=== PATIENT | female | born 1985 | race Caucasian/White ===

== ENCOUNTER → 2017-05-30 | Outpatient (CLI) | payer OTHER ==
[~2017-05-30] MED LIST: FUROSEMIDE INJ 10 MG/ML 2 ML VIAL IV ONE
[2017-05-30 12:42] LABS: BLOOD UREA NITROGEN 9 mg/dl (7-18); BUN/CREATININE RATIO 9.9 (10-20); CALCIUM 8.8 mg/dl (8.5-10.1); CARBON DIOXIDE 27 mmol/L (21-32); CHLORIDE 106 mmol/L (98-107); CREATININE 0.86 mg/dl (0.60-1.20); GLUCOSE 82 mg/dl (70-99); POTASSIUM 3.7 mmol/L (3.5-5.1); SODIUM 137 mmol/L (136-145)
--- NOTE | 2017-05-30 14:00 | DIAGNOSTIC IMAGING REPORT ---
RENAL SCAN DIURETIC (MAG 3) HISTORY: 31 years-old Female N13.30 [id number] hydronephrosis of the right kidney with back pain. COMPARISON: None available TECHNIQUE: Renal scan was obtained with 8.8 mCi technetium 99 MAG3. Lasix was also administered. FINDINGS: There is normal flow and excretion of the left kidney. The left renal collecting system and left renal pelvis appears somewhat patulous. There is asymmetrically decreased flow and excretion of the right kidney. Split function is 88.7% on the left and 11.3% on the right. There is delayed excretion of contrast from the right kidney. Excretion is difficult to quantify secondary to lack of significant tracer within the right kidney and collecting system. No significant tracer retention. IMPRESSION: Significantly decreased flow and excretion of the right kidney. Split function of 88.7% on the left and 11.3% on the right. The above report was generated using voice recognition software. It may contain grammatical, syntax or spelling errors. Electronically signed by: Ruben Barros M.D. 05/30/2017 1:59 PM Dictated Date/Time: 05/30/2017 12:52 PM
== END | disposition home or self-care (01) ==
LOC: C.NUCL 09:51
PROVIDERS: ATTEND Urology
DX: N13.30 Unspecified hydronephrosis (principal)

== ENCOUNTER → 2017-08-01 | Outpatient (CLI) | payer OTHER ==
[~2017-08-01] MED LIST changes: +ACET-749 PO; +CIPR-255 PO; +GLV/100 PO; +IBUP-1449 PO; +MULT-506 PO
--- NOTE | 2017-08-01 13:56 | DIAGNOSTIC IMAGING REPORT ---
RENAL SCAN DIURETIC (MAG 3) CLINICAL HISTORY: N13.30 Hydronephrosis obstructive change. TECHNIQUE: This study was obtained following administration of 9.1 mCi technetium 99m MAG3. 20 mg Lasix was administered. COMPARISON STUDY: 05/30/2017 FINDINGS: Study is similar compared to the prior exam. There is considerable asymmetry in total renal function. Uptake and washout characteristics of the left kidney are unremarkable. Total function of the left kidney is 92% compared to a prior 88.7%. The right kidney shows minimal function at approximately 8%. This is slightly diminished from the prior study of 11.3%. There continues to be a decrease in excretion rate of the right kidney compared to the left. IMPRESSION: 1. Significantly decreased flow in function of the right kidney with current function estimated at 8 % of the total. 2. Left kidney functions appropriately with a total function estimated at 92% of the total. 3. Maximum right renal function is slightly diminished compared to the prior study. The above report was generated using voice recognition software. It may contain grammatical, syntax or spelling errors. Electronically signed by: Miguel Lowe M.D. 08/01/2017 1:55 PM Dictated Date/Time: 08/01/2017 1:39 PM
== END | disposition home or self-care (01) ==
LOC: C.NUCL 11:13
PROVIDERS: ATTEND Urology
DX: N13.30 Unspecified hydronephrosis (principal)

== ENCOUNTER → 2017-08-14 | Outpatient (CLI) | payer OTHER ==
[~2017-08-14] MED LIST changes: -ACET-749 PO; -CIPR-255 PO; -FUROSEMIDE INJ 10 MG/ML 2 ML VIAL IV ONE
[2017-08-14 12:23] LABS: BASO % 1.8 %; BASO ABS # 0.07 K/uL (0-0.2); EOS % 11.4 %; EOS ABS # 0.44 K/uL (0-0.5); HEMATOCRIT 33.4 % (37-47); HEMOGLOBIN 11.5 g/dL (12.0-16.0); LYMPH % 36.1 %; LYMPH ABS # 1.39 K/uL (1.2-3.4); MEAN CELL VOLUME 91.5 fL (80-100); MEAN CORPUSCULAR HEMOGLOBIN 31.5 pg (25-34); MEAN CORPUSCULAR HGB CONC 34.4 g/dl (32-36); MEAN PLATELET VOLUME 10.6 fL (7.4-10.4); MONO % 9.9 %; MONO ABS # 0.38 K/uL (0.11-0.59); NEUT % 40.8 %; NEUT ABS # 1.57 K/uL (1.4-6.5); PLATELET COUNT 162 K/uL (130-400); RED CELL DISTRIBUTION WIDTH CV 12.8 % (11.5-14.5); RED CELL DISTRIBUTION WIDTH SD 43.3 fL (36.4-46.3); WHITE BLOOD COUNT 3.85 K/uL (4.8-10.8)
[2017-08-14 12:44] LABS: BLOOD UREA NITROGEN 11 mg/dl (7-18); CALCIUM 8.8 mg/dl (8.5-10.1); CARBON DIOXIDE 25 mmol/L (21-32); CREATININE 0.85 mg/dl (0.60-1.20); GLUCOSE 77 mg/dl (70-99); POTASSIUM 3.7 mmol/L (3.5-5.1); SODIUM 138 mmol/L (136-145)
== END | disposition home or self-care (01) ==
LOC: C.LABPBG 10:30
PROVIDERS: ATTEND Urology
DX: N13.30 Unspecified hydronephrosis (principal)

== ENCOUNTER → 2017-08-22 | Outpatient (CLI) | payer OTHER ==
[~2017-08-22] MED LIST changes: +GADAVIST IV PRN
--- NOTE | 2017-08-22 11:11 | DIAGNOSTIC IMAGING REPORT ---
PELVIC COMBO, ABDOMEN COMBO CLINICAL HISTORY: 31 years-old Female presenting with HX DESMOID TUMOR RECURRENCE, REMOVED TWICE. TECHNIQUE: Multisequence, multiplanar MR imaging of the abdomen and pelvis was performed before and after the administration of intravenous contrast. IV contrast: 5 mL of Gadavist. COMPARISON: MR of the abdomen from 02/14/2017 performed at an outside hospital. FINDINGS: Localizer images: Unremarkable. Lung bases: Lung bases clear. Normal heart size. No pericardial or pleural effusion. Liver: Normal morphology. No liver lesion. Patent hepatic vasculature. Biliary: No intrahepatic or extrahepatic biliary ductal dilatation. Normal gallbladder. Pancreas: Normal. Spleen: Normal. Adrenal glands: Normal. Kidneys and ureters: Decreased dilatation of the right renal collecting system and resultant atrophy of the right kidney, likely sequela of chronic hydronephrosis as demonstrated on the prior exam. Bladder: Normal. Pelvic organs: Uterus normal though displaced towards the left pelvis. The right ovary is also displaced and contains a 3.5 cm cyst (series 9 image 14). Bowel: Normal. No bowel obstruction. Peritoneal cavity: No free fluid or intraperitoneal gas. Lymph nodes: No enlarged lymph nodes in the abdomen or pelvis. Vasculature: Aorta and IVC patent and normal in caliber. Abdominal wall: Normal. Musculoskeletal: The extraperitoneal mass in the region of the right iliacus and right obturator muscles now measures 8.8 x 6.2 cm in maximal axial dimension, previously 8.1 x 5.9 cm. This again expands the musculature and exerts mass effect on the intrapelvic contents. This extends minimally through the sciatic notch. This also extends along the inferior margin of the right superior pubic ramus. A portion of the mass may also track along the right femoral vasculature. The mass demonstrates avid enhancement on postcontrast imaging along the periphery periphery and in the lobular components along the sciatic notch and pubic ramus. However, the central and superficial components of the dominant portion of the mass are largely hypovascular, suggesting a post treatment response. T2 hyperintensity of the right external and internal obturator muscle may relate to infiltration by the mass or degeneration. IMPRESSION: 1. 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 The multilobulated mass in the lesser components, specifically along the sciatic notch and right superior pubic ramus, do not demonstrate the vascularization. 2. Interval development of chronic atrophy of the right kidney likely secondary to chronic hydronephrosis. 3. Interval development of a 3.5 cm right ovarian cyst. This is also a benign, however, follow-up ultrasound in 6-12 weeks could be considered to ensure resolution. Electronically signed by: Jaiden Barraza M.D. 08/22/2017 11:10 AM Dictated Date/Time: 08/22/2017 10:52 AM
--- NOTE | 2017-08-28 06:03 | CODING QUERY NO DIAGNOSIS ---
TREATMENT RENDERED WITHOUT A DIAGNOSIS Dr. Brock, To promote full compliance with coding requirements relating to patient care, physician participation is requested in all cases of sand car worker uncertainty. Please assist us with providing a diagnosis/symptom for the test(s) below: A diagnosis/symptom was not documented on your Order. A valid diagnosis/symptom is required to bill all insurances. Please remember that we are unable to code a diagnosis of rule out, probable, possible, questionable, or suspected. Tests that require a diagnosis: * MRI ABDOMEN COMBO DIAGNOSIS: * MRI PELVIS COMBO DIAGNOSIS: DATE OF SERVICE: 08/22/17 Provider Signature: Date: Thank you Luke August [facility] Information Management Once completed, please kindly fax back to [phone] For questions please call [phone]
== END | disposition home or self-care (01) ==
LOC: C.MRI 09:33
PROVIDERS: ATTEND Internal Medicine Hematology
DX: D48.1 Neoplasm of uncertain behavior of connective and other soft tissue (principal); N26.1 Atrophy of kidney (terminal)

== ENCOUNTER 2017-08-29 12:18 | Day surgery (SDC) | payer OTHER ==
[2017-08-04 10:37] VITALS: BMI 19.0
[~2017-08-29] VITALS: Ht 167.6 cm; Wt 53.6 kg
[~2017-08-29 12:18] MED LIST changes: +ATROPINE SULFATE 0.1 MG/ML 5ML SYR IV PRN; +CIPROFLOXACIN / D5W 400 MG IV SCH; +EpHEDrine SULFATE INJ 50 MG/ML AMP IV PRN; +FENTANYL CITRATE INJ 50 MCG/1 ML 2 ML VIAL IV PRN; -GADAVIST IV PRN; +HYDROmorphone INJ 1 MG/ML SYR IV PRN; +LACTATED RINGER'S 1000ML 1,000 ML IV SCH; +ONDANSETRON INJ 2 MG/ML 2 ML VIAL IV PRN
[2017-08-29 12:42] VITALS: BP 119/68; PULSE 77; TEMP 36.8; O2SAT 100; Ht 167.6 cm; Wt 53.6 kg
[2017-08-29] MEDS ORDERED: LIDOCAINE HCL 2% 2 ML VIAL (20MG/ML) ONE (12:45)
[2017-08-29] MEDS ORDERED: ONDANSETRON INJ 2 MG/ML 2 ML VIAL ONE (12:45)
[2017-08-29] MEDS ORDERED: PROPOFOL IV EMULSION 10 MG/ML 20 ML VIAL IV ONE ×3 (12:45→14:03)
[2017-08-29] MEDS ORDERED: DEXAMETHASONE SOD INJ 4 MG/ML VIAL ONE (12:45)
[2017-08-29] MEDS ORDERED: MIDAZOLAM HCL 1 MG/ML 2ML VIAL ONE (12:46)
[2017-08-29] MEDS ORDERED: FENTANYL CITRATE INJ 50 MCG/1 ML 2 ML VIAL ONE (12:46)
--- NOTE | 2017-08-29 13:15 | History & Physical Bridge Note ---
H&P Re-Evaluation Bridge Note: I have examined the patient, reviewed the History & Physical and in the interval since the performance of the History & Physical I have noted the following changes of clinical significance: No changes noted
--- NOTE | 2017-08-29 14:17 | [facility] Post Operative Brief Note ---
Immediate Operative Summary Operative Date Aug 29, 2017. Pre-Operative Diagnosis Right hydronephrosis Post-Operative Diagnosis Same as preop Procedure(s) Performed Cystoscopy, Right Stent Exchange ([id number]) Surgeon Dr. Cueva Meter Shop Supervisor Surgeon(s) none Estimated Blood Loss 0 ml Findings Consistent with Post-Op Diagnosis Specimens none, as per surgeon Anesthesia Type General Complication(s) none Disposition Accompanied Pt To Recover: yes Disposition: Recovery Room / PACU
--- NOTE | 2017-08-29 14:27 | DIAGNOSTIC IMAGING REPORT ---
KUB CLINICAL HISTORY: RT STENT stent exchange TECHNIQUE: Image intensifier COMPARISON STUDY: None FINDINGS: Image intensifier usage was provided for a right ureteral stent exchange. IMPRESSION: Right ureteral stent exchange with image intensifier assistance. The above report was generated using voice recognition software. It may contain grammatical, syntax or spelling errors. Electronically signed by: Miguel Lowe M.D. 08/29/2017 2:26 PM Dictated Date/Time: 08/29/2017 2:25 PM
[2017-08-29] MEDS ORDERED: SODIUM CHLORIDE 0.9% 1000ML 1,000 ML IV SCH (14:33)
--- NOTE | 2017-08-29 14:33 | Discharge Instructions ---
Discharge Instructions Date of Service Aug 29, 2017. Admission Reason for Admission: Hydronephrosis Discharge Discharge Diagnosis / Problem: hydronephrosis Discharge Goals Goal(s): Decrease discomfort, Improve function, Increase independence, Improve disease control Activity Recommendations Activity Limitations: resume your previous activity Lifting Limitations: none Exercise/Sports Limitations: none May Resume Sexual Activity: when tolerated Shower/Bathe: no limitations Driving or Machine Use: resume 1 day after discharge . Instructions / Follow-Up Instructions / Follow-Up Dr. Cueva's office will call you to set up your next visit. Current Hospital Diet Patient's current hospital diet: Discharge Diet Recommended Diet: Regular Diet Procedures Procedures Performed: Cystoscopy, Right Stent Exchange ([id number]) Pending Studies Studies pending at discharge: no Medical Emergencies . Who to Call and When: Medical Emergencies: If at any time you feel your situation is an emergency, please call 911 immediately. . Non-Emergent Contact Non-Emergency issues call your: Urologist Call Non-Emergent contact if: you have a fever, temperature is above 101.5, your pain is not controlled, your pain is worsening . . "Provider Documentation" section prepared by Alex Akhtar. .
--- NOTE | 2017-08-29 14:37 | Anesthesiology Progress Note ---
Anesthesia Post Op Note Date & Time Aug 29, 2017 at 14:37 Vital Signs Pain Intensity: 0 Vital Signs Past 12 Hours Date Time Temp Pulse Resp B/P (MAP) Pulse Ox O2 Delivery O2 Flow Rate FiO2 08/29/17 14:21 36.8 95 13 123/73 100 Oxymask 10 08/29/17 12:42 36.8 77 16 119/68 (85) 100 Room Air Notes Mental Status: alert / awake / arousable, participated in evaluation Pt Amnestic to Procedure: Yes Nausea / Vomiting: adequately controlled Pain: adequately controlled Airway Patency, RR, SpO2: stable & adequate BP & HR: stable & adequate Hydration State: stable & adequate Anesthetic Complications: no major complications apparent
--- NOTE | 2017-08-29 14:37 | [facility] Operative Report ---
Operative Report Operative Date Aug 29, 2017. Pre-Operative Diagnosis Right hydronephrosis Post-Operative Diagnosis Same as preop Procedure(s) Performed Cystoscopy, Right Stent Exchange ([id number]) Surgeon Dr. Cueva Property Investor Surgeon(s) none Estimated Blood Loss 0 ml Specimens none, as per surgeon Drains [id number] stent Anesthesia Type General Complication(s) none Disposition yes Recovery Room / PACU Indications Right hydronephrosis Description of Procedure The patient was identified in the preoperative holding area, appropriate informed consents reviewed and completed and she was transported to the operating suite. Upon arrival she received appropriate preoperative antibiotics in the form of ciprofloxacin. Adequate sedation was achieved, and she was placed in dorsal lithotomy position where she was sterilely prepped and draped in standard fashion. I began the case by passing a 22 Croatian cystoscope with 30 lens. Inspection of the bladder revealed healthy appearing bladder mucosa with a right ureteral stent easily seen protruding from the right ureteral orifice. I grasped the distal end of the stent and while watching the proximal end under fluoroscopy, I gently withdrew the stent. I then intubated the stent with a sensor wire which was advanced to the kidney without difficulty. I withdrew the stent entirely before placing a new 6 Croatian by 26 cm double-J ureteral stent. This upsized stent passed easily without significant resistance -which represents a significant change from the time of her prior stent placement where it was very challenging to get the stent beyond the obstructing mass. We saw an excellent curl in the kidney as well as the bladder, and emptied her bladder before concluding the case. There were no complications and she tolerated the procedure very well. I attest to the content of the Intraoperative Record and any orders documented therein. Any exceptions are noted below.
[2017-08-29] MEDS ORDERED: PHENAZOPYRIDINE HOME PACK 200 MG VIAL PO ONE (14:45)
[2017-08-29] MEDS ORDERED: TRAMADOL HCL 50 MG TAB PO PRN (14:45)
[2017-08-29] MEDS ORDERED: PHENAZOPYRIDINE HCL 200 MG TAB PO PRN (14:45)
[2017-08-29 14:50] VITALS: BP 130/75; PULSE 70; TEMP 36.8; O2SAT 98
[2017-08-29 15:20] VITALS: BP 122/72; PULSE 72; O2SAT 99
[2017-08-29 15:50] VITALS: BP 117/65; PULSE 80; TEMP 37.4; O2SAT 99
== END 2017-08-29 16:37 | disposition home or self-care (01) ==
LOC: C.ACU 12:18
PROVIDERS: ATTEND Urology
DX: N13.30 Unspecified hydronephrosis (principal); Z80.9 Family history of malignant neoplasm, unspecified

== ENCOUNTER → 2017-10-12 | Outpatient (CLI) | payer OTHER ==
[~2017-10-12] MED LIST changes: -ATROPINE SULFATE 0.1 MG/ML 5ML SYR IV PRN; -CIPROFLOXACIN / D5W 400 MG IV SCH; -EpHEDrine SULFATE INJ 50 MG/ML AMP IV PRN; -FENTANYL CITRATE INJ 50 MCG/1 ML 2 ML VIAL IV PRN; +FUROSEMIDE 40 MG/4 ML VIAL IV ONE; -HYDROmorphone INJ 1 MG/ML SYR IV PRN; -LACTATED RINGER'S 1000ML 1,000 ML IV SCH; -ONDANSETRON INJ 2 MG/ML 2 ML VIAL IV PRN
--- NOTE | 2017-10-12 11:46 | DIAGNOSTIC IMAGING REPORT ---
RENAL SCAN DIURETIC (MAG 3) CLINICAL HISTORY: HYDRONEPHROSIS COMPARISON STUDY: 08/01/2017 FINDINGS: The patient was injected with 8.6 mCi of technetium 99m MAG3. There is markedly diminished flow to the right kidney. Fractionated function is 89% on the left 11% on the right. There is a flattened excretory curve on the right. The time to half maximum on the right is 36 minutes. The time to half maximum on the left is mildly prolonged measuring 23 minutes. IMPRESSION: 1. No significant change from the preceding study performed in July 2017 2. Persistent decreased right renal flow and function. 3. Fractionated function is 89% on the left 11% on the right. Electronically signed by: Tapan Kuafman M.D. 10/12/2017 11:44 AM Dictated Date/Time: 10/12/2017 11:37 AM
== END | disposition home or self-care (01) ==
LOC: C.NUCL 10:04
PROVIDERS: ATTEND Urology
DX: N13.30 Unspecified hydronephrosis (principal)